=== PATIENT | female | born 1960 | race Caucasian/White ===

== ENCOUNTER → 2017-07-09 | Outpatient (CLI) | payer BC | END | disposition home or self-care (01) | LOC: LABWHC1 11:52 | PROVIDERS: ATTEND Otolaryngology | DX: E04.1 Nontoxic single thyroid nodule (principal) | CPT/HCPCS: 36415; 84439; 84443; 86376 ==

== ENCOUNTER 2017-07-15 11:21 | Day surgery (SDC) | payer BC ==
--- NOTE | 2017-07-15 12:47 | US ---
EXAMINATION TYPE: US thyroid st tissue head/neck DATE OF EXAM: 07/15/2017 COMPARISON: US 2017 CLINICAL HISTORY: E04.1 Thyroid Nodule. GLAND SIZE: Right Lobe: 4.5 x 1.8 x 1.8 cm Overall Parenchyma: heterogenous Left Lobe: 4.1 x 1.4 x 1.5 cm Overall Parenchyma: homogeneous Isthmus Thickness: 0.5 cm NODULES RIGHT: # of nodules measured on right: 3 1. 1.9 X 1.9 x 1.6 cm hypoechoic mixed nodule at the upper pole with well- defined margins. This nodule is taller than wide and shows intranodular vascularity. Prior size: 2.0 x 1.6 x 1.6 cm 2. 1.3 X 1.1 x 1.0 cm isoechoic nodule at the mid pole with poorly defined margins; present with microcalcifications. This nodule is taller than wide and shows intranodular vascularity. Prior size: 1.1 x 1.1 x 1.2 cm 3. 0.8 X 0.6 x 0.6 cm hypoechoic solid nodule at the mid pole with poorly defined margins; present with microcalcifications. This nodule is taller than wide and shows no intranodular vascularity. Prior size: 0.5 x 0.4 x 0.4 cm LEFT: # of nodules measured on left: 1 1. 0.4 X 0.3 x 0.3 cm hypoechoic solid nodule at the mid pole with poorly defined margins; . This nodule is taller than wide and shows no intranodular vascularity. Prior size: Not seen previously ISTHMUS: # of nodules measured in the isthmus: 0 Bilateral neck scanned, no evidence of lymphadenopathy. IMPRESSION: 1. Dominant right lobe thyroid nodule is 1 mm reduced in size relative to the previous exam. 2. 1.3 cm nodule within the right thyroid is 1 mm larger than on the previous exam where it measured 1.2 cm. 3. There are additional subcentimeter nodules within both lobes. MTDD
--- NOTE | 2017-07-15 13:58 | US ---
ULTRASOUND GUIDED FNA THYROID BIOPSY: CLINICAL HISTORY: Request for 2.0 and 1.3 cm right thyroid nodule for percutaneous FNA FINDINGS: The procedure was explained to the patient. The risks, complications, benefits and alternatives were discussed and any questions were answered. Informed consent was obtained. Patient was placed supin e on the ultrasound table and prepped and draped in the usual sterile fashion. Utilizing a 25 gauge needle, five passes were made into the 2 requested nodules within the right lobe of the thyroid. Patient was stable throughout the procedure. Pathology is pending. All elements of maximal barrier technique were utilized. IMPRESSION: 1. Successful ultrasound guided FNA thyroid biopsy.
[2017-07-15 23:26] VITALS: BP 118/69; PULSE 61; RESP 14; TEMP 97.9
== END 2017-07-15 13:27 | disposition home or self-care (01) ==
LOC: RADUSMAIN 11:21
PROVIDERS: ATTEND Otolaryngology
DX: E04.1 Nontoxic single thyroid nodule (principal)
CPT/HCPCS: 10022; 76536; 76942; 88173; 88305

== ENCOUNTER 2017-07-30 08:56 | Day surgery (SDC) | payer BC ==
[2017-07-22 14:46] VITALS: BMI 29.2
[~2017-07-30 08:56] MED LIST: DEXAMETHASONE SOD PHOSPHATE 10 MG/ML 1 ML VIAL IV ONE; DEXAMETHASONE SOD PHOSPHATE 4 MG/ML 1 ML VIAL IV ONE; FAMOTIDINE 20 MG/2 ML VIAL IV ONE; FAMOTIDINE 20 MG/2 ML VIAL IV PRN; HYDROmorphone 0.5 MG/0.5 ML SYRINGE IVP PRN; LACTATED RINGERS 1,000 ML IV SCH; LIDOCAINE 1% 20 ML VIAL (10MG/ML) FOR IV START INTRADERMA PRN; MIDAZOLAM 2 MG/2 ML VIAL IV PRN; ONDANSETRON 4 MG/2 ML VIAL IVP ONE; ONDANSETRON 4 MG/2 ML VIAL IVP PRN
[2017-07-30 10:27] VITALS: RESP 16
[2017-07-30] MEDS ORDERED: SUCCINYLCHOLINE CHLORIDE 100 MG/5 ML SYR IV ONE (11:26)
[2017-07-30] MEDS ORDERED: MIDAZOLAM 2 MG/2 ML VIAL ONE (11:26)
[2017-07-30] MEDS ORDERED: LIDOCAINE 1% INJ 10MG/ML (20 ML MDV) ONE (11:26)
[2017-07-30] MEDS ORDERED: PROPOFOL 10 MG/ML 20 ML VIAL IV ONE (11:26)
[2017-07-30] MEDS ORDERED: fentaNYL (PF) 50 MCG/ML 2 ML AMP ONE (11:26)
[2017-07-30 12:22] VITALS: TEMP 97.6
--- NOTE | 2017-07-30 12:45 | P.OP ---
Date of Procedure: 07/30/17 Preoperative Diagnosis: + Globus pharyngeus cough left base of tongue mass Postoperative Diagnosis: Same Procedure(s) Performed: Triple endoscopy with biopsy Anesthesia: HARI Surgeon: Michael Biggs Estimated Blood Loss (ml): 5 Pathology: other (Left base of tongue) Condition: stable Disposition: PACU Indications for Procedure: This patient developed a throat tightness after an MRI scan of her back she been going through some workers comp issues she also has difficulty swallowing or choking feeling and a cough. Examination did reveal what appeared to be a lymphoid mass of the left base of tongue and a biopsy was recommended. Triple endoscopy is recommended in light of her multiple symptoms. All risks, benefits , and alternative therapies were discussed. Consent was obtained and all questions were answered. Operative Findings: This patient was found to have a lymphoid mass left base of tongue no other pathology was noted. Description of Procedure: This patient was taken to the operative room and placed in the supine position. A general inhalation anesthetic was administered to the patient by mask and subsequently intubated with an SUPERVISOR FILES tube. A tooth guard was placed and a Jako laryngoscope was placed into the patient's mouth with care to avoid any trauma to the lips teeth gums or tongue. The base of tongue, vallecula, epiglottis, postcricoid space, piriform sinus, lateral pharynx and hypopharynx, true and false cords, ventricle, were inspected and great detail. The scope was placed on a Lewy. The lesion was biopsied. This patient was found on the left base of tongue left of the midline. A bronchoscope was then inserted into the lungs and all 12 segments of the lungs were evaluated with the laparoscope to the extent of visualization. There is no signs of any endobronchial lesions noted. The bronchoscope was then removed and the Jako laryngoscope and fluid was removed. Tooth guard was kept in place. An esophagoscope was then inserted into the patient's mouth and we extended the scope into the right piriform sinus into the esophagus. We passed the rigid esophagoscope into the esophagus to the lower esophageal sphincter and then in retrograde fashion evaluated the esophagus by pulling back to the upper esophageal sphincter. The entire length of the esophagus was evaluated directly. The patient tolerated this procedure well. Follow-up will be in the office in 1 week. Voice rest was not recommended.
[2017-07-30 13:31] VITALS: BP 113/74; PULSE 66
== END 2017-07-30 13:42 | disposition home or self-care (01) ==
LOC: OR 08:56
PROVIDERS: ATTEND Otolaryngology
DX: R22.0 Localized swelling, mass and lump, head (principal); F45.8 Other somatoform disorders; R05 Cough; E04.1 Nontoxic single thyroid nodule; F32.9 Major depressive disorder, single episode, unspecified; F41.9 Anxiety disorder, unspecified; Z79.1 Long term (current) use of non-steroidal anti-inflammatories (NSAID); Z79.891 Long term (current) use of opiate analgesic; Z79.52 Long term (current) use of systemic steroids; Z79.899 Other long term (current) drug therapy; F17.200 Nicotine dependence, unspecified, uncomplicated
CPT/HCPCS: 88305; 31535; 31622; 43191; J2250; J2001; J3010; J0330; J2704

== ENCOUNTER 2018-08-25 07:29 | Day surgery (SDC) | payer BC ==
[2018-08-24 09:27] VITALS: BMI 32.9
[~2018-08-25 07:29] MED LIST changes: -DEXAMETHASONE SOD PHOSPHATE 10 MG/ML 1 ML VIAL IV ONE; -DEXAMETHASONE SOD PHOSPHATE 4 MG/ML 1 ML VIAL IV ONE; -FAMOTIDINE 20 MG/2 ML VIAL IV ONE; -FAMOTIDINE 20 MG/2 ML VIAL IV PRN; -HYDROmorphone 0.5 MG/0.5 ML SYRINGE IVP PRN; -MIDAZOLAM 2 MG/2 ML VIAL IV PRN; -ONDANSETRON 4 MG/2 ML VIAL IVP ONE; -ONDANSETRON 4 MG/2 ML VIAL IVP PRN
[2018-08-25 07:47] VITALS: RESP 16; TEMP 97.1
[2018-08-25] MEDS ORDERED: PROPOFOL 10 MG/ML 20 ML VIAL IV ONE (08:24)
--- NOTE | 2018-08-25 08:58 | P.PCN ---
Date of Procedure: 08/25/18 Procedure(s) Performed: BRIEF HISTORY: Patient is a 58-year-old pleasant white female, scheduled for an elective colonoscopy as a part of screening for colorectal neoplasia. PROCEDURE PERFORMED: Colonoscopy. PREOPERATIVE DIAGNOSIS: Screening for colon cancer. IV sedation per Anesthesia. PROCEDURE: After informed consent was obtained, the patient, was brought into the endoscopy unit. IV sedation was administered by Anesthesia under continuous monitoring. Digital rectal examination was normal. Initially the Olympus CF- 160 flexible video colonoscope was then inserted in the rectum, gradually advanced into the cecum without any difficulty. Careful examination was performed as the scope was gradually being withdrawn. Ileocecal valve and the appendiceal orifice were visualized and appeared normal. Prep was excellent. Mucosa of the cecum, ascending colon, transverse colon, descending colon, sigmoid colon, and rectum appeared normal. Retroflexion was performed in the rectum and no lesions were seen. The patient tolerated the procedure well. IMPRESSION: Normal-appearing colon from rectum to cecum with no evidence of colorectal neoplasia. RECOMMENDATIONS: Findings of this examination were discussed with the patient as well as her family. She was advised to have a repeat screening colonoscopy in 10 years.
[2018-08-25 09:43] VITALS: BP 103/64; PULSE 75
== END 2018-08-25 10:00 | disposition home or self-care (01) ==
LOC: ORWHC2ENDO 07:29
PROVIDERS: ATTEND Internal Medicine Gastroenterology
DX: Z12.11 Encounter for screening for malignant neoplasm of colon (principal); Z87.891 Personal history of nicotine dependence
CPT/HCPCS: J2704; G0121; 45378

== ENCOUNTER → 2018-09-28 | Outpatient (CLI) | payer BC ==
[2018-09-28 08:45] LABS: Amylase <30 U/L (30-110); Lipase 74 U/L (23-300)
--- NOTE | 2018-09-28 08:50 | US ---
EXAMINATION TYPE: US abdomen complete DATE OF EXAM: 09/28/2018 COMPARISON: NONE CLINICAL HISTORY: R10.84 Abd pain. 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 The intrahepatic portion of the IVC and proximal abdominal aorta are within normal limits. Common bile duct is unremarkable. The visualized portions of the pancreas are cuba ogenous. The spleen is unremarkable. Kidneys are symmetric and free of hydronephrosis. No renal le sions are seen. IMPRESSION: 1. Pancreatic body is unremarkable. There is limited evaluation of the pancreatic head and tail on ul trasound although the visualized portions appear unremarkable. No discrete pancreatic ductal dilatati on is seen. 2. Surgical absence of the gallbladder.
== END | disposition home or self-care (01) ==
LOC: RADUSWWP 07:26
PROVIDERS: ATTEND Internal Medicine
DX: R10.84 Generalized abdominal pain (principal); Z90.49 Acquired absence of other specified parts of digestive tract
CPT/HCPCS: 36415; 76700; 82150; 82378; 83690

== ENCOUNTER → 2018-10-18 | Outpatient (CLI) | payer BC ==
--- NOTE | 2018-10-18 11:31 | US ---
EXAMINATION TYPE: US thyroid st tissue head/neck DATE OF EXAM: 10/18/2018 COMPARISON: CLINICAL HISTORY: E04.1 Thyroid nodule. follow up thyroid nodules. No on thyroid meds. GLAND SIZE: Right Lobe: 4.9 x 2.2 x 2.1 cm Overall Parenchyma: homogenous Left Lobe: 4.1 x 1.6 x 1.4 cm Overall Parenchyma: homogeneous Isthmus Thickness: 0.4 cm NODULES RIGHT: # of nodules measured on right: 3 1. 1.8 X 1.6 x 1.6 cm solid nodule at the upper pole with well-defined margins. This nodule is wi de as tall and shows intranodular vascularity. Prior size: 1.9 x 1.9 x 1.6 cm 2. 1.1 X 1.0 x 1.1 cm isoechoic nodule at the mid pole with poorly defined margins. This nodule is taller than wide and shows intranodular vascularity. Calcifications visualized. Prior size: 1.3 x 1.1 x 1.0 cm 3. 0.7 X 0.7 x 0.6 cm hypoechoic nodule at the mid pole with well-defined margins. This nodule is w ider than tall and shows intranodular vascularity. Prior size: 0.8 x 0.6 x 0.6 cm LEFT: # of nodules measured on left: 1 1. 0.5 X 0.4 x 0.3 cm hypoechoic nodule at the mid pole with well-defined margins. This nodule is wider than tall and shows no intranodular vascularity. Prior size: 0.4 x 0.3 x 0.3 cm ISTHMUS: # of nodules measured in the isthmus: 0 Bilateral neck scanned. Superior to left thyroid lobe, lymph node appearing lesion visualized - 1.8 x 1.2 x 0.7 cm. IMPRESSION: Multinodular goiter. Nodules are essentially stable.
== END ==
LOC: RADUSWWP 10:22
PROVIDERS: ATTEND Otolaryngology
DX: E04.2 Nontoxic multinodular goiter (principal)
CPT/HCPCS: 76536

== ENCOUNTER → 2021-02-15 | Outpatient (CLI) | payer MEDICARE, BC ==
[2021-02-15 18:24] LABS: Basophils # (A) 0.04 X 10*3/uL (0.00-0.10); Basophils % (A) 0.6 %; Eosinophils # (A) 0.17 X 10*3/uL (0.04-0.35); Eosinophils % (A) 2.4 %; HCT 38.1 % (37.2-46.3); HGB 12.5 g/dL (12.0-15.0); Lymphocytes # (A) 2.18 X 10*3/uL (0.90-5.00); Lymphocytes % (A) 30.5 %; MCH 29.3 pg (27.0-32.0); MCHC 32.8 g/dL (32.0-37.0); MCV 89.2 fL (80.0-97.0); Mean Platelet Volume 11.7 fL (9.5-12.2); Monocytes # (A) 0.53 X 10*3/uL (0.20-1.00); Monocytes % (A) 7.4 %; Neutrophils # (A) 4.21 X 10*3/uL (1.80-7.70); Platelet Count 198 X 10*3/uL (140-440); RBC 4.27 X 10*6/uL (4.10-5.20); RDW 12.8 % (11.5-14.5); WBC 7.14 X 10*3/uL (4.50-10.00)
[2021-02-15 21:19] LABS: African American GFR (CKD) 92.2 (60.0-200.0); Albumin 4.4 g/dL (3.80-4.90); Albumin/Globulin Ratio 1.69 (1.60-3.17); Anion Gap 8.2 mmol/L (4.00-12.00); BUN/Creat Ratio 27.5 Ratio (12.00-20.00); Calcium 9.5 mg/dL (8.7-10.3); Carbon Dioxide 24.8 mmol/L (21.6-31.8); Globulin 2.6 g/dL (1.6-3.3); Non-African American GFR(CKD) 79.6 (60.0-200.0); Potassium 4.1 mmol/L (3.5-5.5); Total Bilirubin 0.4 mg/dL (0.2-1.2)
[2021-02-15 22:41] LABS: Hepatitis A Antibody IgM Non-Reactive (Non-Reactive); Hepatitis B Core IgM Non-Reactive (Non-Reactive); Hepatitis B Surface Antigen Non-Reactive (Non-Reactive); Hepatitis C IgG Antibody Non-Reactive (Non-Reactive)
== END | disposition home or self-care (01) ==
LOC: LABWHC1 13:56
PROVIDERS: ATTEND Internal Medicine
DX: I10 Essential (primary) hypertension (principal); R07.9 Chest pain, unspecified; R10.13 Epigastric pain
CPT/HCPCS: 36415; 80053; 80074; 82150; 83690; 85025

== ENCOUNTER → 2021-03-06 | Outpatient (CLI) | payer BC, MEDICARE ==
--- NOTE | 2021-03-06 08:00 | US ---
EXAMINATION TYPE: US abdomen complete DATE OF EXAM: 03/06/2021 COMPARISON: US 09/28/2018 CLINICAL HISTORY: R10.84 GENERALIZED ABD PAIN. Pt states epigastric pain, GB removed EXAM MEASUREMENTS: Liver Length: 16.6 cm CBD: 0.4 cm Spleen: 9.8 cm Right Kidney: 9.8 x 4.5 x 5.0 cm Left Kidney: 10.4 x 5.4 x 5.1 cm Pancreas: wnl Liver: Possible small cyst posterior right lobe anterior to right kidney= 0.6 cm Gallbladder: Surgically absent Evidence for sonographic Moore's sign: No CBD: wnl Spleen: wnl Right Kidney: wnl Left Kidney: wnl Upper IVC: wnl Abd Aorta: wnl The liver is homogenous. The intrahepatic portion of the IVC and proximal abdominal aorta are within normal limits. There is no evidence of cholelithiasis. Common bile duct is unremarkable. The visu alized portions of the pancreas are homogenous. The spleen is unremarkable. Kidneys are symmetric a nd free of hydronephrosis. IMPRESSION: Small hepatic cysts noted. Otherwise unremarkable study.
== END | disposition home or self-care (01) ==
LOC: RADUSWWP 07:12
PROVIDERS: ATTEND Internal Medicine
DX: K76.89 Other specified diseases of liver (principal); Z90.49 Acquired absence of other specified parts of digestive tract
CPT/HCPCS: 76700

== ENCOUNTER → 2022-01-21 | Outpatient (CLI) | payer MEDICARE, BC ==
--- NOTE | 2022-01-21 09:59 | XR ---
EXAMINATION TYPE: XR cervical spine comp DATE OF EXAM: 01/21/2022 9:50 AM INDICATION: Patient age:Female; 61 years old; Reason for study: M54.1 radiculopathy. COMPARISON: None TECHNIQUE: The cervical spine was imaged in 4 projections. Frontal, lateral, odontoid and bilateral o blique. FINDINGS: The osseous structures show normal alignment without evidence of an acute fracture. There are osteoph ytes noted throughout the cervical spine on the anterior and lateral aspects of the vertebral bodies. The intervertebral disk spaces are preserved. Pedicles are intact. Soft tissues are within normal limits. The odontoid appears intact. The neural foramen appear patent with scattered mild neural fora messi stenosis. IMPRESSION: 1. No fracture or dislocation. 2. Mild to moderate degenerative disc disease changes of the cervical spine.
== END | disposition home or self-care (01) ==
LOC: RADXRMAIN 09:32
PROVIDERS: ATTEND Family Medicine
DX: M50.10 Cervical disc disorder with radiculopathy, unspecified cervical region (principal); M99.71 Connective tissue and disc stenosis of intervertebral foramina of cervical region
CPT/HCPCS: 72050

== ENCOUNTER → 2022-05-30 | Outpatient (CLI) | payer MEDICARE, BC ==
--- NOTE | 2022-05-30 14:56 | XR ---
EXAMINATION TYPE: XR ankle complete RT DATE OF EXAM: 05/30/2022 2:43 PM INDICATION: Patient age:Female; 62 years old; Reason for study: M25.571 R ankle pain; COMPARISON: None TECHNIQUE: The right ankle is imaged in frontal, lateral and oblique projections. FINDINGS: Fixation hardware involving the distal right fibula. Hardware appears intact. No evidence of acute fr acture. There is nonunion of the posterior aspect of the fibula with 3 mm displacement best appreciat ed on lateral view. IMPRESSION: Post surgical changes with fixation hardware in place. No evidence of acute fracture.
== END | disposition home or self-care (01) ==
LOC: RADXRMAIN 14:31
PROVIDERS: ATTEND Family Medicine
DX: M25.571 Pain in right ankle and joints of right foot (principal); Z98.890 Other specified postprocedural states

== ENCOUNTER 2024-03-16 08:27 | Emergency (ER) | payer MEDICARE, BC ==
[2024-03-16 08:32] VITALS: RESP 18
--- NOTE | 2024-03-16 08:55 | ED ---
Eye Problem HPI - General Chief complaint: Eye Problems Stated complaint: Allergic Reaction Time Seen by Provider: 03/16/24 08:34 Source: patient, RN notes reviewed Mode of arrival: ambulatory Limitations: no limitations - History of Present Illness Initial comments: 64-year-old female presents emergency department complaint of allergic reaction, poison reva. Patient states that she was helping clear some trees did not notice any thing but states a neighbor dog came over in which was noted to be in the scott and family hours with poison reva. Patient states that she has had eye swelling, rash on her arms very itchy. Denies any difficulty breathing difficulty swallowing. Patient offers no other associated symptoms. - Related Data Previous Rx's Medication Instructions Recorded predniSONE 10 mg PO DIRECTED #30 tab 03/16/24 Allergies Allergy/AdvReac Type Severity Reaction Status Date / Time No Known Allergies Allergy Verified 03/16/24 08:32 Review of Systems ROS Statement: Those systems with pertinent positive or pertinent negative responses have been documented in the HPI. ROS Other: All systems not noted in ROS Statement are negative. Past Medical History Additional Past Medical History / Comment(s): hx colon polyp. hx-positive palv2 gene History of Any Multi-Drug Resistant Organisms: None Reported Past Surgical History: Breast Surgery, Cholecystectomy, Hysterectomy, Orthopedic Surgery, Tonsillectomy Additional Past Surgical History / Comment(s): dot mastectomy with reconstruction with silicone implants, lt acl and meniscus repair, rt ankle plate and 7 screws Past Anesthesia/Blood Transfusion Reactions: No Reported Reaction Past Psychological History: No Psychological Hx Reported Smoking Status: Former smoker Past Alcohol Use History: Rare Past Drug Use History: None Reported - Past Family History Mother Family Medical History: Cancer General Exam Limitations: no limitations General appearance: alert, in no apparent distress Head exam: Present: atraumatic, normocephalic, normal inspection Eye exam: Present: PERRL, EOMI, periorbital swelling. Absent: normal appearance, scleral icterus, conjunctival injection ENT exam: Present: normal exam, normal oropharynx, mucous membranes moist, TM's normal bilaterally Neck exam: Present: normal inspection, full ROM. Absent: tenderness, meningismus, lymphadenopathy Respiratory exam: Present: normal lung sounds bilaterally. Absent: respiratory distress, wheezes, rales, rhonchi, stridor Cardiovascular Exam: Present: regular rate, normal rhythm, normal heart sounds. Absent: systolic murmur, diastolic murmur, rubs, gallop, clicks Neurological exam: Present: alert Course Vital Signs 03/16/24 08:29 Temperature 98 F Pulse Rate 75 Respiratory 18 Rate Blood Pressure 153/90 O2 Sat by Pulse 99 Oximetry Medical Decision Making - Medical Decision Making Was pt. sent in by a medical professional or institution ([facility], [employer] [facility], urgent care, hospital, or half-way...) When possible be specific @ -No Did you speak to anyone other than the patient for history (EMS, parent, family, police, friend...)? What history was obtained from this source @ -No Did you review nursing and triage notes (agree or disagree)? Why? @ -I reviewed and agree with nursing and triage notes Were old charts reviewed (outside hosp., previous admission, EMS record, old EKG , old radiological studies, urgent care reports/EKG's, half-way records)? Report findings @ -No old charts were reviewed Differential Diagnosis (chest pain, altered mental status, abdominal pain women, abdominal pain men, vaginal bleeding, weakness, fever, dyspnea, syncope, headache, dizziness, GI bleed, back pain, seizure, CVA, palpatations, mental health, musculoskeletal)? @ -Allergic reaction, contact dermatitis, poison reva] EKG interpreted by me (3pts min.). @ -none X-rays interpreted by me (1pt min.). @ -None done CT interpreted by me (1pt min.). @ -None done U/S interpreted by me (1pt. min.). @ -None done What testing was considered but not performed or refused? (CT, X-rays, U/S, labs)? Why? @ -None What meds were considered but not given or refused? Why? @ -None Did you discuss the management of the patient with other professionals (professionals i.e. [facility], [employer], lab, RT, psych nurse, social services technician, vocational training director, teacher, chief scientific officer, pillowcase sewer)? Give summary @ -No Was smoking cessation discussed for >3mins.? @ -No Was critical care preformed (if so, how long)? @ -No Were there social determinants of health that impacted care today? How? (Homelessness, low income, unemployed, alcoholism, drug addiction, transportation, low edu. Level, literacy, decrease access to med. care, long-term, rehab)? @ -No Was there de-escalation of care discussed even if they declined (Discuss DNR or withdrawal of care, Hospice)? DNR status @ -No What co-morbidities impacted this encounter? (DM, HTN, Smoking, COPD, CAD, Cancer, CVA, ARF, Chemo, Hep., AIDS, mental health diagnosis, sleep apnea, morbid obesity)? @ -None Was patient admitted / discharged? Hospital course, mention meds given and route, prescriptions, significant lab abnormalities, going to OR and other pertinent info. @ -Discharged patient presented for allergic reaction, poison reva. Patient received Solu-Medrol be discharged on prednisone will continue antihistamines return parameters were discussed. Undiagnosed new problem with uncertain prognosis? @ -No Drug Therapy requiring intensive monitoring for toxicity (Heparin, Nitro, Insulin, Cardizem)? @ -No Were any procedures done? @ -No Diagnosis/symptom? @ -Allergic reaction, poison reva Acute, or Chronic, or Acute on Chronic? @ -Acute Uncomplicated (without systemic symptoms) or Complicated (systemic symptoms)? @ -Uncomplicated Side effects of treatment? @ -No Exacerbation, Progression, or Severe Exacerbation? @ -No Poses a threat to life or bodily function? How? (Chest pain, [place], [place], pneumonia, PE, COPD, DKA, ARF, appy, cholecystitis, CVA, Diverticulitis, Homicidal, Suicidal, threat to staff... and all critical care pts) @ -No Disposition Clinical Impression: Poison reva Disposition: HOME SELF-CARE Condition: Stable Instructions (If sedation given, give patient instructions): Poison Reva (ED) Additional Instructions: Please return to the Emergency Department if symptoms worsen or any other concerns. Prescriptions: predniSONE 10 mg PO DIRECTED #30 tab Is patient prescribed a controlled substance at d/c from ED?: No Referrals: Jun Fournier DO [Primary Care Provider] - 1-2 days Time of Disposition: 08:53
[2024-03-16] MEDS: methylPREDNISolone SOD SUCCI 125 MG/2 ML VIAL IM ONE (08:57)
[2024-03-16 09:17] VITALS: BP 148/89; PULSE 77; TEMP 98.2
== END 2024-03-16 09:17 | disposition home or self-care (01) ==
LOC: EC 08:27
CPT/HCPCS: 96372; 99283

== ENCOUNTER → 2024-05-31 | Outpatient (CLI) | payer MEDICARE, BC ==
--- NOTE | 2024-06-15 07:47 | P.CEMON ---
14 Day Event monitor note: Patient wore an event monitor for 14 days from 05/31/2024 through 06/10/2024. Findings: Patient's baseline heart rate was normal sinus rhythm. There were no signficant atrial fibrillation, atrial flutter, or ventricular tachycardia episodes. There were no significant pauses greater than 2 seconds. patient's minimum heart rate was 53 bpm Patient's maximum heart rate was 140 bpm Patient's average heart rate was 79 bpm There was 1% PVC burden There were 6 patient activated events which corresponded with normal sinus rhythm and twice with brief episode of SVT for 4 and then 6 beats Conclusions: []14 day event monitor showing normal sinus rhythm with 1% PVC burden. Patient activated events corresponding with normal sinus rhythm and twice with brief runs of SVT 4 and 6 beats
--- NOTE | 2024-06-16 09:03 | EM ---
14 Day Event monitor note: Patient wore an event monitor for 14 days from 05/31/2024 through 06/10/2024. Findings: Patient's baseline heart rate was normal sinus rhythm. There were no significant atrial fibrillation, atrial flutter, or ventricular tachycardia episodes. There were no significant pauses greater than 2 seconds. patient's minimum heart rate was 53 bpm Patient's maximum heart rate was 140 bpm Patient's average heart rate was 79 bpm There was 1% PVC burden There were 6 patient activated events which corresponded with normal sinus rhythm and twice with brief episode of SVT for 4 and then 6 beats Conclusions: 14 day event monitor showing normal sinus rhythm with 1% PVC burden. Patient activated events corresponding with normal sinus rhythm and twice with brief runs of SVT 4 and 6 beats. MTDD
== END | disposition home or self-care (01) ==
LOC: RADECHMAIN 07:26
PROVIDERS: ATTEND Family Medicine
DX: I47.10 Supraventricular tachycardia, unspecified (principal); R00.2 Palpitations
CPT/HCPCS: 93270